=== PATIENT | female | born 1950 | race Caucasian/White ===

== ENCOUNTER 2024-12-27 07:29 | Day surgery (SDC) | payer OTHER ==
[2024-12-27] MEDS: CEFAZOLIN SODIUM 2 GM/VIAL ONE (10:35)
[2024-12-27] MEDS: LIDOCAINE HCL/EPINEPHRINE 20 ML MDV ONE (11:02)
--- NOTE | 2024-12-27 11:29 | P.OP ---
Preoperative diagnosis: RIGHT Breast Mass Postoperative diagnosis: RIGHT Breast Mass Primary procedure: Incisional Biopsy of RIGHT Breast Anesthesia: GETA + Local Estimated blood loss: <5cc Specimen: RIGHT Breast Mass Findings: 16cm RIGHT Breast Mass Complications: None Transferred to: Recovery Room Condition: Good
[2024-12-27] MEDS ORDERED: LIDOCAINE 2% MPF 5 ML VIAL ONE (11:32)
[2024-12-27] MEDS ORDERED: MIDAZOLAM HCL 2 MG/2 ML INJ ONE ×2 (11:32)
[2024-12-27] MEDS ORDERED: ONDANSETRON 4 MG/2 ML VIAL ONE (11:32)
[2024-12-27] MEDS ORDERED: dexAMETHasone 10 MG/ML VIAL ONE (11:32)
[2024-12-27] MEDS ORDERED: propofoL 200 MG/20 ML VIAL IV ONE (11:32)
[2024-12-27] MEDS ORDERED: FENTANYL CITR 100 MCG/2 ML ONE (11:32)
--- NOTE | 2024-12-27 12:10 | OP ---
Date of Procedure: 12/27/2024 Surgeon: Gilles Marroquin MD, Preoperative Diagnosis: Right breast mass. Postoperative Diagnosis: Right breast mass. Procedure Performed: Incisional biopsy of the right breast mass. Anesthesia: General endotracheal plus local. Estimated Blood Loss: Less than 5 cc. Specimen: Right breast mass. Findings: Approximately 16 cm right breast mass. Complication: None. Disposition: The patient was transferred to recovery room in good condition. Brief History And Present Illness: The patient is a 74-year-old woman who has a 5-year history of an enlarging mass in the right breast that is ultimately large, nodular, firm, fixed, disfiguring. A p reoperative imaging shows consistent with malignancy with the chest wall involvement. She sees me fo r biopsy/tissue diagnosis. I spoke with Dr. Tereso Bey to discuss doing an incisional biopsy for t issue diagnosis, so we can initiate treatment. Procedure In Detail: The patient was brought to the operating room after informed consent was obtain ed, prepped and draped in the usual sterile fashion, after adequate anesthesia was achieved. I made an incision on the lateral aspect of the breast far away from the significant fungating mass, which w as under the skin of the right breast which was taking up the majority of the breast tissue. I creat ed a tunnel tract to the mass itself from a lateral aspect to minimize the chance of a nonhealing wou nd of this area. I then approached the mass, removed several specimens, sent it off for pathologic e xamination. There was a capsule around this which was firm, which was sent off for pathologic examin ation. In addition, there was a necrotic type tissue contained inside of the mass consistent with so me necrotic effect. This also was sent off for pathologic examination as a specimen. The area was c opiously irrigated and cleansed, at this point. The incision was closed using interrupted 3-0 nylon sutures. A sterile dressing was placed over top. The patient tolerated the procedure well without i ncident or complication and transferred to PACU in good condition. All counts were correct at the en d of the case. TK/MODL Voice ID: [id number] Report ID: [id number]
[2024-12-27 13:05] VITALS: BP 132/73; TEMP 97.2; O2SAT 96
--- NOTE | 2024-12-29 12:43 | EKG ---
Test Date: 2024-12-27 Test Time: 08:46:19 House Officer: LATIA MEASUREMENT RESULTS: Intervals: Rate: 85 ND: 142 QRSD: 66 QT: 370 QTc: 440 [place]: P: 53 ND: 142 QRS: -22 T: 29 INTERPRETIVE STATEMENTS: Normal sinus rhythm Cannot rule out Anterior infarct, age undetermined Abnormal ECG No previous ECG available for comparison Electronically Signed On 12-29-24 12:38:05 CDT by Christopher Carl
== END 2024-12-27 13:03 | disposition home or self-care (01) ==
LOC: OR 07:29
PROVIDERS: ATTEND Surgery
PROC: 0HBT0ZX Excision of Right Breast, Open Approach, Diagnostic (ICD-10-PCS; principal; 2024-12-27 11:15)
DX: C50.911 Malignant neoplasm of unspecified site of right female breast (principal); Z17.0 Estrogen receptor positive status [ER+]; Z17.32 Human epidermal growth factor receptor 2 negative status; Z17.21 Progesterone receptor positive status
CPT/HCPCS: 19101; 93005; 88305; J2704; J2003; J2250 ×2; J3010; J1100; J2405